=== PATIENT | male | born 1950 | race Two or more races ===

== ENCOUNTER 2018-02-28 13:51 | Emergency (ER) | payer MEDICARE, OTHER ==
[2018-02-28] MEDS: SODIUM CHLORIDE 0.9% FLUSH 10 ML SOL IV PRN ×3 (14:00→14:10)
[2018-02-28] MEDS ORDERED: ASPIRIN 81 MG CHEWABLE CTB ONE (14:02)
[2018-02-28] MEDS ORDERED: DILTIAZEM 5 MG/ML SOL IV ONE ×5 (14:05→14:45)
[2018-02-28] MEDS ORDERED: NITROGLYCERIN 0.4 MG TAB SL PRN (14:09)
[2018-02-28] MEDS ORDERED: MORPHINE SULFATE 10 MG/ML SOL IV PRN (14:09)
[2018-02-28] MEDS ORDERED: ASPIRIN 81 MG CHEWABLE CTB PO STA (14:09)
[2018-02-28 14:17] LABS: HEMATOCRIT 32 % (39-53); HEMOGLOBIN 11.1 gm/dl (13.5-17.7); MEAN CORPUSCULAR HEMOGLOBIN 31.9 pg (27.0-32.0); MEAN CORPUSCULAR HGB CONC 34.4 gm/dl (32.0-36.0); MEAN CORPUSCULAR VOLUME 93 fL (80-100)
[2018-02-28 14:18] LABS: LACTIC ACID 1.9 mMol/L (0.0-2.0)
[2018-02-28 14:24] LABS: INR 1.21 (0.86-1.12)
[2018-02-28 14:29] LABS: CREATINE KINASE 29 U/L (39-308); TROP I < 0.017 ng/ml (0.000-0.056)
[2018-02-28] MEDS ORDERED: DILTIAZEM 5 MG/ML 125 MG in SODIUM CHLORIDE 0.9% 100 ML 100 ML IV SCH (14:30)
[2018-02-28 14:36] LABS: BAND NEUTROPHILS % (MANUAL) 2 %; BASOPHILS % (MANUAL) 0 % (0-3); EOSINOPHILS % (MANUAL) 0 % (0-9); LYMPHOCYTES % (MANUAL) 8 % (10-50); MONOCYTES % (MANUAL) 6 % (0-12); NEUTROPHILS % (MANUAL) 84 % (37-80)
[2018-02-28 15:29] VITALS: TEMP 99.1
[2018-02-28 16:16] LABS: ALBUMIN 2.2 gm/dl (3.4-5.0); BILIRUBIN,TOTAL 0.3 mg/dl (0.2-1.0); TOTAL PROTEIN 7.1 gm/dl (6.4-8.2)
[2018-02-28 16:30] LABS: APPEARANCE,URINE Clear; BILIRUBIN,URINE NEGATIVE (NEGATIVE); COLOR,URINE Yellow; GLUCOSE, URINE (UA) NEGATIVE (NEGATIVE); KETONES,URINE NEGATIVE (NEGATIVE); LEUKOCYTE ESTERASE ,URINE TRACE (NEGATIVE); NITRATE,URINE NEGATIVE (NEGATIVE); OCCULT BLOOD,URINE 2+ (NEG-TRACE)
[2018-02-28 16:37] LABS: BACTERIA 1+ (< 1+); CRYSTALS NEGATIVE (0-3 AVE/HPF); WBC,URINE 15-20 (0-5AV/HPF)
[2018-02-28] MEDS ORDERED: CEFTRIAXONE 1 GM PDS 2 GM in SODIUM CHLORIDE 0.9% 50 ML 50 ML IV ONE (17:46)
[2018-02-28] MEDS ORDERED: CEFTRIAXONE 1 GM PDS ONE (18:07)
[2018-02-28 18:33] LABS: POTASSIUM 3.9 mMol/L (3.5-5.1)
[2018-02-28 18:34] LABS: CALCIUM 8.1 mg/dl (8.5-10.1); CARBON DIOXIDE 25.8 mEq/L (21-32); CREATININE 1.15 mg/dl (0.80-1.30)
[2018-02-28 19:05] VITALS: BP 129/88; PULSE 101; RESP 26; O2SAT 98
== END 2018-02-28 19:03 | disposition short-term general hospital (02) | DRG 125 ==
LOC: ED 13:51
DX: B00.52 Herpesviral keratitis (principal); J90 Pleural effusion, not elsewhere classified; I50.9 Heart failure, unspecified; I48.92 Unspecified atrial flutter; N39.0 Urinary tract infection, site not specified
CPT/HCPCS: 36415; 71045; 71275; 80053; 81001; 82550; 83880; 84484; 85007; 85027; 85610; 85730; 87040; 87088; 93005; 96365; 96366; 96374; 99285; 99291; 99292; J0696; Q9967; J3490

== ENCOUNTER 2018-04-02 06:41 | Day surgery (SDC) | payer MEDICARE ==
[2018-04-02] MEDS ORDERED: PROPOFOL 500 MG/50 ML EMU IV ONE (07:25)
[2018-04-02] MEDS ORDERED: LIDOCAINE HCL 1% MPF 30 SOL ONE (07:25)
[2018-04-02] MEDS ORDERED: PROPOFOL 10 MG/ML EMU IV ONE (08:57)
[2018-04-02 09:14] VITALS: TEMP 97.6
[2018-04-02 09:18] VITALS: O2SAT 99
[2018-04-02 09:50] VITALS: BP 157/83; PULSE 81; RESP 18
== END 2018-04-02 10:03 | disposition home or self-care (01) | DRG 812 ==
LOC: SURG 06:41
PROVIDERS: ATTEND Internal Medicine Gastroenterology
DX: D50.9 Iron deficiency anemia, unspecified (principal); K26.9 Duodenal ulcer, unspecified as acute or chronic, without hemorrhage or perforation; Q39.9 Congenital malformation of esophagus, unspecified; K44.9 Diaphragmatic hernia without obstruction or gangrene; R19.5 Other fecal abnormalities; K57.30 Diverticulosis of large intestine without perforation or abscess without bleeding; D12.7 Benign neoplasm of rectosigmoid junction; D12.5 Benign neoplasm of sigmoid colon; D12.3 Benign neoplasm of transverse colon; K22.70 Barrett's esophagus without dysplasia; K29.60 Other gastritis without bleeding
CPT/HCPCS: J2001; J2704